=== PATIENT | male | born 1940 | race Caucasian/White ===

== ENCOUNTER 2021-07-11 08:11 | Emergency (ER) | payer MEDICARE, OTHER ==
[~2021-07-11] VITALS: Ht 177.8 cm; Wt 90.0 kg
[~2021-07-11 08:11] MED LIST: ASPI81TA30 PO; MULT-1141 PO; OMEG1CAP46 PO; SIMV-45 PO; VALS1TAB6 PO
[2021-07-11 08:42] LABS: CLARITY,URINE CLOUDY (Clear); COLOR,URINE YELLOW (Yellow); GLUCOSE, URINE NEGATIVE (Neg); KETONES,URINE TRACE mg/dl (Neg); LEUKOCYTE ESTERASE ,URINE NEGATIVE (Neg); NITRITES, URINE NEGATIVE (Neg); OCCULT BLOOD,URINE MODERATE (Neg); PH,URINE 5.5 (4.8-8.0); PROTEIN,URINE >=300 mg/dl (Neg)
[2021-07-11 08:43] LABS: UA COLLECTION TYPE NON-SPECIFIED
[2021-07-11 08:56] LABS: AMORPHOUS URATES 1+; BACTERIA,URINE FEW /HPF (Neg); RENAL CELLS, URINE FEW /HPF; SQUAMOUS EPITHELIAL CELL,UR FEW /LPF (FEW)
[2021-07-11 08:57] LABS: CELLULAR CAST 0-4 /LPF (NEGATIVE); COARSE GRANULAR CAST >30 /LPF (NEGATIVE); TRANSITIONAL EPI CELLS,URINE MODERATE /HPF
[2021-07-11 10:57] LABS: HEMOGLOBIN 15.5 g/dl (14.0-17.9); MEAN PLATELET VOLUME 8.8 FL (7.4-10.4); MONOCYTES # (AUTO) 0.9 X10'3 (0-0.9); RED CELL DISTRIBUTION WIDTH 13.8 % (11.5-14.5)
[2021-07-11 10:59] LABS: BASOPHILS % (AUTO) 0.4 % (0-1); EOSINOPHILS % (AUTO) 0.1 % (0-6); HEMATOCRIT 44.5 % (42.0-52.0); LYMPHOCYTES # (AUTO) 0.7 X10'3 (1.1-4.8); LYMPHOCYTES % (AUTO) 12.7 % (21-51); MEAN CORPUSCULAR HEMOGLOBIN 29.5 PG (27.0-31.0); MEAN CORPUSCULAR HGB CONC 34.9 g/dL (33.0-36.5); MEAN CORPUSCULAR VOLUME 84.7 FL (78-98); MONOCYTES % (AUTO) 16.5 % (2-12); NEUTROPHILS # (AUTO) 3.8 X10'3 (1.8-7.7); NEUTROPHILS % (AUTO) 70.3 % (42-75); PLATELET COUNT 134 X10'3 (140-440); RED BLOOD COUNT 5.25 X10'6 (4.70-6.10); WHITE BLOOD COUNT 5.4 X10'3 (4.5-11.0)
[2021-07-11 11:08] LABS: ALANINE AMINOTRANSFERASE 41 U/L (12-78); ALBUMIN 3.2 G/DL (3.4-5.0); ALKALINE PHOSPHATASE 71 IU/L (46-116); ASPARTATE AMINO TRANSFERASE 41 U/L (10-37); BILIRUBIN,TOTAL 0.6 MG/DL (0.1-1.0); BLOOD UREA NITROGEN 28 MG/DL (7-18); BUN/CREATININE RATIO 14.1 (5.4-32.0); CALCIUM 8.1 MG/DL (8.5-10.1); CREATININE 1.98 MG/DL (0.60-1.10); GLUCOSE 109 MG/DL (70-104); LIPASE 143 U/L (73-393); TOTAL CARBON DIOXIDE 30.2 MMOL/L (24-32); TOTAL PROTEIN 6.4 G/DL (6.4-8.2); eGFR 33 ML/MIN
[2021-07-11 11:17] LABS: ANION GAP 7 (8-16); CHLORIDE 97 MMOL/L (99-107); POTASSIUM 3.3 MMOL/L (3.5-5.1); SODIUM 134 MMOL/L (135-145)
[2021-07-11] MEDS ORDERED: potassium Cl 20 mEq SR tablet PO STA (11:26)
[2021-07-11 12:11] VITALS: BP 150/64
== END 2021-07-11 12:00 | disposition home or self-care (01) ==
LOC: ER 08:12
DX: N23 Unspecified renal colic (principal); N17.9 Acute kidney failure, unspecified; E87.6 Hypokalemia; I10 Essential (primary) hypertension; E78.00 Pure hypercholesterolemia, unspecified; I25.810 Atherosclerosis of coronary artery bypass graft(s) without angina pectoris; I25.2 Old myocardial infarction; J44.9 Chronic obstructive pulmonary disease, unspecified; F17.200 Nicotine dependence, unspecified, uncomplicated; Z85.9 Personal history of malignant neoplasm, unspecified; Z87.19 Personal history of other diseases of the digestive system; Z79.82 Long term (current) use of aspirin; Z79.899 Other long term (current) drug therapy
CPT/HCPCS: 36415; 74176; 80053; 81001; 83690; 85025; 87088; 99284

== ENCOUNTER 2022-12-14 13:29 | Inpatient (IN) | payer OTHER, BC ==
[~2022-12-14] VITALS: Ht 177.8 cm; Wt 90.0 kg
[2022-12-14] MEDS ORDERED: morphine 2 MG/ML inj. syringe IV ONE (13:50)
[2022-12-14 13:55] LABS: BASOPHILS % (AUTO) 0.4 % (0-1); EOSINOPHILS # (AUTO) 0.3 X10'3 (0-0.9); HEMOGLOBIN 13.8 g/dl (14.0-17.9); LYMPHOCYTES # (AUTO) 1.3 X10'3 (1.1-4.8); LYMPHOCYTES % (AUTO) 12.9 % (21-51); MEAN CORPUSCULAR HGB CONC 33.7 g/dL (33.0-36.5); MEAN PLATELET VOLUME 9.5 FL (7.4-10.4); MONOCYTES # (AUTO) 0.7 X10'3 (0-0.9); MONOCYTES % (AUTO) 6.7 % (2-12); NEUTROPHILS # (AUTO) 7.5 X10'3 (1.8-7.7); PLATELET COUNT 150 X10'3 (140-440); WHITE BLOOD COUNT 9.8 X10'3 (4.5-11.0)
[2022-12-14] MEDS ORDERED: iohexol 350MG/ML 100ml bottle IV ONE (14:01)
[2022-12-14 14:11] LABS: ALANINE AMINOTRANSFERASE 84 U/L (12-78); ALBUMIN 3.2 G/DL (3.4-5.0); ALBUMIN/GLOBULIN RATIO 1.1 (1.1-1.5); ALKALINE PHOSPHATASE 290 IU/L (46-116); ANION GAP 12 (8-16); ASPARTATE AMINO TRANSFERASE 136 U/L (10-37); BILIRUBIN,TOTAL 1.6 MG/DL (0.1-1.0); BLOOD UREA NITROGEN 41 MG/DL (7-18); BUN/CREATININE RATIO 20.7 (10.0-20.0); CALCIUM 8.7 MG/DL (8.5-10.1); CHLORIDE 104 MMOL/L (99-107); CREATININE 1.98 MG/DL (0.60-1.10); GLUCOSE 132 MG/DL (70-104); POTASSIUM 3.4 MMOL/L (3.5-5.1); SODIUM 142 MMOL/L (135-145); TOTAL CARBON DIOXIDE 25.8 MMOL/L (24-32); TOTAL PROTEIN 6.1 G/DL (6.4-8.2); eGFR 32 ML/MIN
[2022-12-14 14:26] LABS: LIPASE 133 U/L (73-393)
[2022-12-14] MEDS ORDERED: albuterol 2.5 MG/3 ML nebule NEB ONE (14:50)
[2022-12-14] MEDS ORDERED: methylPREDNISolone sod succ 125mg/2ml vial IV ONE (14:50)
[2022-12-14] MEDS ORDERED: potassium Cl 20 mEq SR tablet PO PRN ×2 (16:00)
[2022-12-14] MEDS ORDERED: acetaminophen 325mg tablet PO PRN (16:00)
[2022-12-14] MEDS ORDERED: magnesium 4gm in 100ml NS 100 ML IV PRN (16:00)
[2022-12-14] MEDS ORDERED: albuterol 2.5 MG/3 ML nebule NEB PRN (16:00)
[2022-12-14] MEDS ORDERED: potassium Cl 40MEQ/1/2NS 520ml 520 ML IV PRN (16:00)
[2022-12-14] MEDS ORDERED: mag hydrox/Alum hydrox/simeth 30ml oral suspension PO PRN (16:00)
[2022-12-14] MEDS ORDERED: ipratropium/albuterol 3ml nebule NEB PRN (16:00)
[2022-12-14] MEDS ORDERED: ondansetron/PF 4mg/2ml inj IV PRN (16:00)
--- NOTE | 2022-12-14 16:03 | NUR ---
RESPIRATORY PAGED FOR BREATHING TX X2
[2022-12-14] MEDS: normal saline 1000ml 1,000 ML IV SCH (16:04)
--- NOTE | 2022-12-14 16:18 | NUR ---
RT AT BEDSIDE
[2022-12-14] MEDS ORDERED: POTA-82 PO (16:52)
[2022-12-14] MEDS ORDERED: TIOT4MIS5 IH (16:52)
[2022-12-14] MEDS ORDERED: APIX5TAB3 PO (16:52)
[2022-12-14] MEDS ORDERED: VIT1TABL50 PO (16:52)
[2022-12-14] MEDS ORDERED: METF-436 PO (16:52)
[2022-12-14] MEDS ORDERED: ALBU18HF2 INH (16:52)
[2022-12-14] MEDS ORDERED: DIGO-20 PO (16:52)
[2022-12-14] MEDS: K and/or MAG REPLACEMENT MC SCH (20:00)
--- NOTE | 2022-12-14 20:10 | NUR ---
Patient in room ORTHO 4011. I have received report from SARBJIT Santana and had the opportunity to ask questions and assume patient care.
[2022-12-14 20:15] VITALS: BP 141/79
[2022-12-14] MEDS: docusate sod 100mg capsule PO SCH (21:52)
[2022-12-14] MEDS: diatr meglu/diatrizoate 30ml oral sol.-(3 dose) bottle PO SCH (21:53)
[2022-12-14 22:00] VITALS: BP 126/57
[2022-12-14] MEDS: pantoprazole 40MG/NS 100ML BAG 100 ML IV SCH (23:04)
[2022-12-15] MEDS: normal saline 1000ml 1,000 ML IV SCH (04:30)
[2022-12-15 06:00] VITALS: BP 125/78
--- NOTE | 2022-12-15 06:26 | NUR ---
Problems reprioritized. Patient report given, questions answered & plan of care reviewed with SARBJIT Dyer.
--- NOTE | 2022-12-15 06:30 | NUR ---
Patient in room ORTHO 4011. I have received report from SARBJIT Moore and had the opportunity to ask questions and assume patient care.
[2022-12-15 06:55] LABS: BASOPHILS % (AUTO) 0.1 % (0-1); EOSINOPHILS % (AUTO) 0.1 % (0-6); HEMATOCRIT 37.8 % (42.0-52.0); HEMOGLOBIN 12.8 g/dl (14.0-17.9); LYMPHOCYTES # (AUTO) 0.3 X10'3 (1.1-4.8); LYMPHOCYTES % (AUTO) 2.2 % (21-51); MEAN CORPUSCULAR HEMOGLOBIN 29.6 PG (27.0-31.0); MEAN CORPUSCULAR HGB CONC 33.7 g/dL (33.0-36.5); MEAN CORPUSCULAR VOLUME 87.7 FL (78-98); MEAN PLATELET VOLUME 9.9 FL (7.4-10.4); MONOCYTES # (AUTO) 0.5 X10'3 (0-0.9); MONOCYTES % (AUTO) 3.7 % (2-12); NEUTROPHILS # (AUTO) 12.1 X10'3 (1.8-7.7); NEUTROPHILS % (AUTO) 93.9 % (42-75); PLATELET COUNT 134 X10'3 (140-440); RED BLOOD COUNT 4.31 X10'6 (4.70-6.10); RED CELL DISTRIBUTION WIDTH 14.6 % (11.5-14.5); WHITE BLOOD COUNT 12.9 X10'3 (4.5-11.0)
[2022-12-15 07:10] LABS: ALANINE AMINOTRANSFERASE 463 U/L (12-78); ALKALINE PHOSPHATASE 301 IU/L (46-116); ANION GAP 10 (8-16); ASPARTATE AMINO TRANSFERASE 400 U/L (10-37); BILIRUBIN,TOTAL 2.1 MG/DL (0.1-1.0); BLOOD UREA NITROGEN 43 MG/DL (7-18); BUN/CREATININE RATIO 21.7 (10.0-20.0); CALCIUM 8.2 MG/DL (8.5-10.1); CHLORIDE 104 MMOL/L (99-107); CREATININE 1.98 MG/DL (0.60-1.10); GLUCOSE 222 MG/DL (70-104); MAGNESIUM 2.1 MG/DL (1.5-2.4); POTASSIUM 4.1 MMOL/L (3.5-5.1); SODIUM 137 MMOL/L (135-145); TOTAL PROTEIN 5.9 G/DL (6.4-8.2); eGFR 32 ML/MIN
[2022-12-15] MEDS: pantoprazole 40MG/NS 100ML BAG 100 ML IV SCH (07:33)
[2022-12-15] MEDS: diatr meglu/diatrizoate 30ml oral sol.-(3 dose) bottle PO SCH (07:33)
[2022-12-15] MEDS: K and/or MAG REPLACEMENT MC SCH (07:33)
[2022-12-15] MEDS: docusate sod 100mg capsule PO SCH (07:33)
[2022-12-15 10:00] VITALS: BP 147/62
--- NOTE | 2022-12-15 12:36 | NUR ---
Spoke on the phone with CAT Hernandez ([facility]). She states that the patient [facility] a hard [facility] and would like to see if we can get him set up with another PCP. Notified Pat yu CM.
[2022-12-15] MEDS ORDERED: PANT-47 PO (13:45)
--- NOTE | 2022-12-15 14:42 | NUR ---
Patient was discharged at 1415 with instructions and verbalizing understanding of instructions going home via private vehicle. Patient declined for us to take him downstairs in a wheelchair. All lines and tubes including PIV with cannula intact and tele monitor have been removed. The patient's prescription has been faxed to the [place] pharmacy. The patient has a follow up appointment at the [place] on 12/20/22. The patient is aware of his follow up appointment. Patient is stable and appropriate for discharge.
== END 2022-12-15 14:20 | disposition home or self-care (01) | DRG 392 ==
LOC: ER 13:30 → ED HOLD 16:02 → EDBEDREQ 19:52 → ORTHO 4S 20:22
PROVIDERS: ADMIT Family Medicine; ATTEND Family Medicine
PROC: B32T1ZZ Computerized Tomography (CT Scan) of Left Pulmonary Artery using Low Osmolar Contrast (ICD-10-PCS; principal; 2022-12-14)
PROC: B3201ZZ Computerized Tomography (CT Scan) of Thoracic Aorta using Low Osmolar Contrast (ICD-10-PCS; 2022-12-14)
PROC: B32S1ZZ Computerized Tomography (CT Scan) of Right Pulmonary Artery using Low Osmolar Contrast (ICD-10-PCS; 2022-12-14)
PROC: B4201ZZ Computerized Tomography (CT Scan) of Abdominal Aorta using Low Osmolar Contrast (ICD-10-PCS; 2022-12-14)
PROC: B42H1ZZ Computerized Tomography (CT Scan) of Bilateral Lower Extremity Arteries using Low Osmolar Contrast (ICD-10-PCS; 2022-12-14)
PROC: B4241ZZ Computerized Tomography (CT Scan) of Superior Mesenteric Artery using Low Osmolar Contrast (ICD-10-PCS; 2022-12-14)
DX: K21.00 Gastro-esophageal reflux disease with esophagitis, without bleeding (principal); N17.9 Acute kidney failure, unspecified; I48.20 Chronic atrial fibrillation, unspecified; E11.22 Type 2 diabetes mellitus with diabetic chronic kidney disease; F17.210 Nicotine dependence, cigarettes, uncomplicated; N18.9 Chronic kidney disease, unspecified; N28.1 Cyst of kidney, acquired; E78.00 Pure hypercholesterolemia, unspecified; R74.01 Elevation of levels of liver transaminase levels; J44.9 Chronic obstructive pulmonary disease, unspecified; E80.6 Other disorders of bilirubin metabolism; N28.89 Other specified disorders of kidney and ureter; E87.6 Hypokalemia; I12.9 Hypertensive chronic kidney disease with stage 1 through stage 4 chronic kidney disease, or unspecified chronic kidney disease; I25.10 Atherosclerotic heart disease of native coronary artery without angina pectoris; I25.2 Old myocardial infarction; Z79.01 Long term (current) use of anticoagulants; Z79.84 Long term (current) use of oral hypoglycemic drugs; Z82.49 Family history of ischemic heart disease and other diseases of the circulatory system; Z86.11 Personal history of tuberculosis; Z79.899 Other long term (current) drug therapy; Z79.82 Long term (current) use of aspirin; Z95.5 Presence of coronary angioplasty implant and graft; Z71.6 Tobacco abuse counseling
CPT/HCPCS: 36415; 71045; 71275; 74174; 74176; 80053; 80162; 83690; 83735; 83880; 84484; 85025; 87081; 93005; 94640; 94760; 99285; C9113; G0378; J2270; J2930; J3490; J7030; Q9963; Q9967

== ENCOUNTER 2023-01-29 11:33 | Emergency (ER) | payer OTHER, BC ==
[~2023-01-29] VITALS: Ht 177.8 cm; Wt 72.7 kg
[~2023-01-29 11:33] MED LIST changes: +ALBU18HF2 INH; +APIX5TAB3 PO; +DIGO-20 PO; -MULT-1141 PO; +PANT-47 PO; +POTA-366 PO; +TIOT4MIS5 IH; -VALS1TAB6 PO; +VIT1TABL50 PO
[2023-01-29 12:53] LABS: BASOPHILS % (AUTO) 0.3 % (0-1); EOSINOPHILS % (AUTO) 0.1 % (0-6); HEMATOCRIT 40.2 % (42.0-52.0); HEMOGLOBIN 13.7 g/dl (14.0-17.9); LYMPHOCYTES # (AUTO) 0.8 X10'3 (1.1-4.8); MEAN CORPUSCULAR HEMOGLOBIN 29.4 PG (27.0-31.0); MEAN CORPUSCULAR HGB CONC 34.1 g/dL (33.0-36.5); MEAN CORPUSCULAR VOLUME 86.1 FL (78-98); MEAN PLATELET VOLUME 8.6 FL (7.4-10.4); MONOCYTES # (AUTO) 1.2 X10'3 (0-0.9); MONOCYTES % (AUTO) 11.4 % (2-12); NEUTROPHILS # (AUTO) 8.3 X10'3 (1.8-7.7); NEUTROPHILS % (AUTO) 80.2 % (42-75); PLATELET COUNT 174 X10'3 (140-440); RED BLOOD COUNT 4.66 X10'6 (4.70-6.10); RED CELL DISTRIBUTION WIDTH 14.1 % (11.5-14.5); WHITE BLOOD COUNT 10.4 X10'3 (4.5-11.0)
[2023-01-29 13:14] LABS: ALANINE AMINOTRANSFERASE 23 U/L (12-78); ALBUMIN 3.5 G/DL (3.4-5.0); ALBUMIN/GLOBULIN RATIO 1.3 (1.1-1.5); ANION GAP 7 (8-16); ASPARTATE AMINO TRANSFERASE 34 U/L (10-37); BILIRUBIN,TOTAL 1.2 MG/DL (0.1-1.0); BLOOD UREA NITROGEN 29 MG/DL (7-18); BUN/CREATININE RATIO 15.5 (10.0-20.0); CALCIUM 8.7 MG/DL (8.5-10.1); CHLORIDE 103 MMOL/L (99-107); CREATININE 1.87 MG/DL (0.60-1.10); GLUCOSE 116 MG/DL (70-104); POTASSIUM 3.3 MMOL/L (3.5-5.1); SODIUM 138 MMOL/L (135-145); TOTAL CARBON DIOXIDE 27.8 MMOL/L (24-32); TOTAL PROTEIN 6.3 G/DL (6.4-8.2); eGFR 35 ML/MIN
[2023-01-29 13:15] LABS: ALKALINE PHOSPHATASE 64 IU/L (46-116); ETHANOL < 0.010 GM/DL (0.0-0.010)
[2023-01-29] MEDS ORDERED: normal saline 1000ML IV soln IVB ONE (14:00)
[2023-01-29 15:37] LABS: COLOR,URINE YELLOW (Yellow); GLUCOSE, URINE NEGATIVE (Neg); KETONES,URINE TRACE mg/dl (Neg); LEUKOCYTE ESTERASE ,URINE NEGATIVE (Neg); NITRITES, URINE NEGATIVE (Neg); OCCULT BLOOD,URINE LARGE (Neg); PROTEIN,URINE >=300 mg/dl (Neg)
[2023-01-29 15:38] LABS: UA COLLECTION TYPE VOIDED
[2023-01-29 15:39] LABS: CLARITY,URINE SLIGHTLY CLOUDY (Clear)
[2023-01-29 15:45] LABS: MUCUS STRANDS FEW /LPF (Neg); SQUAMOUS EPITHELIAL CELL,UR FEW /LPF (FEW)
[2023-01-29 15:46] LABS: CELLULAR CAST 0-4 /LPF (NEGATIVE)
[2023-01-29 15:47] LABS: URINE AMPHETAMINE SCREEN NEGATIVE (Neg); URINE BARBITUATE SCREEN NEGATIVE (Neg); URINE BENZODIAZEPINES SCREEN NEGATIVE (Neg); URINE CANNABINOID SCREEN NEGATIVE (Neg); URINE COCAINE SCREEN NEGATIVE (Neg); URINE METHADONE SCREEN NEGATIVE (Neg); URINE OPIATE SCREEN NEGATIVE (Neg); URINE PHENCYCLIDINE SCREEN NEGATIVE (Neg)
[2023-01-29 15:48] LABS: BACTERIA,URINE FEW /HPF (Neg)
[2023-01-29 15:49] LABS: WBC,URINE 0-4 /HPF (0-4)
[2023-01-29 16:31] VITALS: BP 180/99
[2023-01-29] MEDS ORDERED: potassium Cl 20 mEq SR tablet PO ONE (17:20)
[2023-01-30] MEDS ORDERED: ROSU40TA PO (13:24)
== END 2023-01-29 18:03 | disposition home or self-care (01) ==
LOC: ER 11:34
DX: E87.6 Hypokalemia (principal); R41.81 Age-related cognitive decline; R26.81 Unsteadiness on feet; E78.00 Pure hypercholesterolemia, unspecified; J44.9 Chronic obstructive pulmonary disease, unspecified; I12.0 Hypertensive chronic kidney disease with stage 5 chronic kidney disease or end stage renal disease; E11.22 Type 2 diabetes mellitus with diabetic chronic kidney disease; N18.9 Chronic kidney disease, unspecified; W19.XXXA Unspecified fall, initial encounter; Y93.89 Activity, other specified; Y92.89 Other specified places as the place of occurrence of the external cause; Y99.8 Other external cause status
CPT/HCPCS: 36415; 70450; 72125; 80053; 80162; 80305; 80320; 81001; 82140; 82948; 85025; 93005; 96360; 99285; J7030

== ENCOUNTER 2025-02-08 20:35 | Emergency (ER) | payer OTHER, BC ==
[~2025-02-08] VITALS: Ht 177.8 cm; Wt 96.8 kg
[~2025-02-08 20:35] MED LIST changes: -OMEG1CAP46 PO; -PANT-47 PO; -POTA-366 PO; +ROSU40TA PO; -SIMV-45 PO
--- NOTE | 2025-02-08 23:52 | Physician Documentation ---
History of Present Illness ~ Chief Complaint: Mechanical Fall Stated Complaint: FALL Time Seen by MD: 23:34 Primary Medical Doctor: [facility] This 84-year-old male presents for a skin tear to his left arm after a ground level trip and fall striking left forearm and left knee. Patient reports no head strike and no loss of consciousness. Patient is on blood thinners. Tetanus within 5 Years?: Yes Medication Reconciliation Allergies: Coded Allergies: No Known Allergies (Unverified , 02/08/25) Scheduled Apixaban (Eliquis), 2.5 MG PO BID, (Reported) Aspirin (Aspirin), 1 TABLET PO QPM, (Reported) Digoxin (Digoxin), 1 TAB PO QPM, (Reported) Rosuvastatin Calcium* (Crestor*), 1 TAB PO QPM, (Reported) Tiotropium Dorothy (Spiriva Respimat), 2 PUFFS IH DAILY, (Reported) Vit B Cmplx 3/FA/Vit C/Biotin (Fina-Leta Rx Tablet), 1 TAB PO DAILY, (Reported) Scheduled PRN Albuterol Sulfate (Ventolin Hfa), 2 PUFFS INH Q6H PRN for SOB or wheezing, (Reported) Past Medical History Past Medical History: Atrial Fibrillation, Coronary Artery Disease, High Cholesterol, Hypertension, Myocardial Infarction, COPD, Diverticulitis, Chronic Kidney Disease, Diabetes, *MUSCULOSKELETAL*, *CANCER* Past Surgical History: orthopedic surgeries, other Patient History: FH: hypertension MOTHER, , Age: 56, Cause: CVA (cerebral vascular accident) Alcohol Use: None Drug Use: none Lives In: Assisted Care Occupation: retired Review of Systems ROS Skin tear to left forearm as stated above in the HPI, otherwise all systems are reviewed and negative. Physical Exam Vital Signs: Temperature: 98.2, Source: Oral, Heart Rate: 72, Respiratory Rate: 22, BP: 143/71, Pulse Oximetry: 96, Weight: 96.820 Oxygen Flow Rate: 0 Physical Exam VITALS: Reviewed and as above. GENERAL: Alert, nontoxic appearing, no apparent distress. HEENT: No facial or scalp injuries RESPIRATORY: No increased work of breathing, no respiratory distress, speaking in full clear sentences MUSCULOSKELETAL: No obvious deformity, moving all joints with full ROM without pain SKIN: 5 cm x 5 cm skin tear to left forearm, 1 cm x 1 cm abrasion to left anterior knee Procedures Laceration Repair : Location: Left forearm skin tear Length (cm): 5 Anesthesia: none Prep: irrigated by nurse Margins: other (Partially revised) Repaired: skin Wound Repaired With: Dermabond Tolerated Procedure Well?: yes, no complications Progress Results/Orders Results/Orders Orders - RUTH GLOVER Wound Care Orders (02/08/25 23:44) Dermabond To Bedside (02/08/25 23:44) Vital Signs 02/08/25 02/08/25 02/09/25 20:36 23:19 00:22 Temp 98.2 98.4 Pulse 76 72 62 Resp 18 22 16 B/P (MAP) 169/105 143/71 (95) 155/97 Pulse Ox 96 96 96 O2 Flow Rate 0 Medical Decision Making Findings This otherwise well-appearing 84-year-old male presented with a skin tear to his left forearm after a mechanical trip and fall without head strike, patient had additional small abrasion to left knee on physical exam. It was reassuring patient did not have a head strike or other injuries reported or noted on physical exam. The skin tear was well irrigated and patient is currently up-to-date on tetanus. There was no evidence of retained foreign body. The skin tear was partially reapproximated utilizing skin glue and dressed by nursing staff. Patient is otherwise well-appearing with remainder of physical exam benign, vital signs are stable and patient is appropriate for outpatient follow up. Patient provided home care instructions, follow up instructions, and return to care precautions. Patient and his family member verbalized understanding of instructions. [facility] notes [facility] Differential Dx:Considerations: Include: Closed head injury, Fracture(s), Urological injury, Vascular injury, Contusion(s), Foreign body(s), Hematoma(s), Laceration(s) Departure Disposition: HOME / SELF CARE / HOMELESS Impression: Primary Impression: Skin tear of left forearm without complication Qualified Codes: S51.812A - Laceration without foreign body of left forearm, initial encounter Additional Impression: Abrasion, left knee, initial encounter Condition: Improved Discharge Instructions: Fall Prevention in the Home, Adult, [id number], Tissue Adhesive Wound Care, [id number] Additional Instructions: Keep the area clean dry and covered, please see the home care instructions for caring for wounds with skin glue. Wash the wound gently and change the dressing at least once a day. Change the dressing more often if it becomes soiled or wet. Please follow up with your primary care provider in the next few days for wound recheck. Please return to the emergency department for any new or worsening concerning symptoms. Referrals: NO PRIMARY CARE PROVIDER (PCP) Education Educated: Patient, Family Educated regarding: diagnosis, treatment, prognosis, need for follow up Signature Scribe Signature: No scribe Attestation: The note accurately reflects work and decisions made by me.JULIANA Keane 02/09/25 01:42 RUTH GLOVER Feb 08, 2025 23:52
[2025-02-09 00:22] VITALS: BP 155/97; PULSE 62; RESP 16; TEMP 98.4; O2SAT 96
== END 2025-02-09 00:25 | disposition home or self-care (01) ==
LOC: ER 20:35
DX: S51.812A Laceration without foreign body of left forearm, initial encounter (principal); S80.212A Abrasion, left knee, initial encounter; E78.00 Pure hypercholesterolemia, unspecified; I25.2 Old myocardial infarction; I25.10 Atherosclerotic heart disease of native coronary artery without angina pectoris; I48.91 Unspecified atrial fibrillation; J44.9 Chronic obstructive pulmonary disease, unspecified; I12.9 Hypertensive chronic kidney disease with stage 1 through stage 4 chronic kidney disease, or unspecified chronic kidney disease; E11.22 Type 2 diabetes mellitus with diabetic chronic kidney disease; N18.9 Chronic kidney disease, unspecified; Z79.01 Long term (current) use of anticoagulants; Z79.899 Other long term (current) drug therapy; W01.198A Fall on same level from slipping, tripping and stumbling with subsequent striking against other object, initial encounter; Y93.89 Activity, other specified; Y92.89 Other specified places as the place of occurrence of the external cause; Y99.8 Other external cause status
CPT/HCPCS: 12002; 99284; J7030; A6258